=== PATIENT | female | born 2000 ===

== ENCOUNTER 2020-08-05 20:00 | Emergency (ER) | payer SELFPAY ==
--- NOTE | 2020-08-05 23:01 | ER ---
HPI: A 19-year-old lady who comes to the ER with a friend for problems with suicidal ideation. The patient tells me that she has had thoughts about this several times over the last few weeks. She has actually had intermittent issues before, but lately, it seems like it has gotten worse when the things have kind of went bad she tells me at home and at work. Her significant other and she are not getting along well and she also works with him. The patient states that she has made multiple plans to commit suicide. Initially, she was thinking she would use a gun, but her friends took her gun away from her. Then there was thoughts about using a knife and her friends also took the knife away. She thought about hanging herself, but decided that was too much work. The patient tells me that she was convinced by her friends that she should come in for evaluation and get some help and she is willing to do this. She has never been evaluated for any problems with behavior health and she tells me she is not on any current medications. She is not allergic to medications as well. OBJECTIVE: GENERAL APPEARANCE: The patient is awake and alert. She started out being somewhat smiley in nature, but as soon as she starts talking, she has more of a sad flat affect. She is not teary eyed. VITAL SIGNS: Reviewed. Temp is 98.1, pulse 88, blood pressure 128/88, respirations 16, O2 sats 100% on room air. LUNGS: Clear. CARDIAC: Heart sounds distinct without murmurs. SKIN: Warm and dry. LABORATORY DATA: Today, include a CBC showing a slightly elevated white count of 11.3. Urine HCG is negative. COVID is negative. Urine tox screen is negative. CMP is still pending with some technical difficulty in the lab. DIAGNOSIS: Suicidal ideation. TREATMENT PLAN: We contacted [facility] for mental health evaluation and hopeful placement. The patient is willing to be admitted for inpatient therapy and these plans are currently being made. SILVER/MODL /[id number]
== END 2020-08-06 07:10 ==
LOC: LB.ED 20:00
DX: R45.851 Suicidal ideations (principal); Z20.822 Contact with and (suspected) exposure to COVID-19
CPT/HCPCS: 36415; 80053; 80307; 81025; 84443; 85025; 99283; 99285; U0002